=== PATIENT | female | born 1985 | race Caucasian/White ===

== ENCOUNTER 2021-08-30 22:01 | Emergency (ER) | payer OTHER ==
[~2021-08-30] VITALS: Ht 177.8 cm; Wt 70.3 kg
[2021-08-30] MEDS ORDERED: ZOLOFT25 MG PO (22:09)
[2021-08-30] MEDS ORDERED: EPIPEN 2-P0.3 MG/0.3 IM (23:23)
[2021-08-30] MEDS ORDERED: ZYRTEC10 M3 PO (23:23)
== END 2021-08-30 23:50 | disposition home or self-care (01) ==
LOC: ED 22:01
DX: J30.89 Other allergic rhinitis (principal); Z88.0 Allergy status to penicillin; Z79.899 Other long term (current) drug therapy
CPT/HCPCS: 96374; 96375; 99283-25; J2060